=== PATIENT | male | born 1945 | race Caucasian/White ===

== ENCOUNTER 2017-05-24 17:14 | Emergency (ER) | payer OTHER ==
[2017-05-24 17:18] VITALS: TEMP 98.4
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
[2017-05-24 18:34] VITALS: BP 138/84; PULSE 78; RESP 14; O2SAT 96
== END 2017-05-24 18:34 | disposition home or self-care (01) ==
DX: S63.501A Unspecified sprain of right wrist, initial encounter (principal); Z79.82 Long term (current) use of aspirin; Z85.038 Personal history of other malignant neoplasm of large intestine; V18.4XXA Pedal cycle driver injured in noncollision transport accident in traffic accident, initial encounter; Y92.410 Unspecified street and highway as the place of occurrence of the external cause; Y99.8 Other external cause status; Y93.55 Activity, bike riding
CPT/HCPCS: 73110; 99283; L3807

== ENCOUNTER → 2017-08-13 | Outpatient (CLI) | payer OTHER | LOC: BHFA 09:00 | PROVIDERS: ATTEND Internal Medicine Cardiovascular Disease | DX: R07.89 Other chest pain (principal) ==

== ENCOUNTER 2017-08-27 07:43 | Inpatient (IN) | payer OTHER ==
[2017-08-27] MEDS ORDERED: ASPIRIN EC 325 MG TAB PO ONE ×2 (07:44→08:01)
[2017-08-27] MEDS ORDERED: DIAZEPAM 5 MG TAB PO ONE (07:44)
[2017-08-27] MEDS ORDERED: NS 1,000 ML IV ONE (07:44)
[2017-08-27] MEDS ORDERED: diphenhydrAMINE 25 MG CAP PO ONE ×2 (07:44→08:01)
[2017-08-27] MEDS ORDERED: FAMOTIDINE 20 MG TAB PO ONE (07:44)
[2017-08-27] MEDS ORDERED: FAMOTIDINE 20 MG TAB ONE (08:01)
[2017-08-27] MEDS ORDERED: DIAZEPAM 5 MG TAB ONE (08:01)
--- NOTE | 2017-08-27 08:02 | CPEKG ---
Heart Rate: 64 RR Interval: 938 P-R Interval: 200 QRSD Interval: 84 QT Interval: 412 QTC Interval: 425 P [place]: 40 QRS [place]: -16 T Wave [place]: 81 EKG Severity - BORDERLINE ECG - EKG Impression: SINUS RHYTHM EKG Impression: BORDERLINE LEFT AXIS DEVIATION EKG Impression: BORDERLINE T WAVE ABNORMALITIES Electronically Signed By: Juana Salcedo 27-Aug-2017 10:38:44
[2017-08-27 08:34] LABS: % IMMATURE GRANULYOCYTES 0.2 % (0.0-1.1); ABSOLUTE IMMATURE GRANULOCYTES 0.01 10^3/uL (0.00-0.10); ADD DIFF? NO; ADD MORPH? NO; ADD SCAN? NO; ATYPICAL LYMPHOCYTE FLAG 20 (0-99); FRAGMENT RBC FLAG 0 (0-99); HEMATOCRIT 48.1 % (40.0-51.0); HEMOGLOBIN 17.2 g/dL (13.7-17.5); LEFT SHIFT FLG 0 (0-99); LIPEMIA HEMOLYSIS FLAG 90 (0-99); MEAN CELL HEMOGLOBIN 35.8 pg (27.9-34.1); MEAN CELL HEMOGLOBIN CONCENTR. 35.8 g/dL (32.4-36.7); MEAN PLATELET VOLUME 9.4 fL (8.7-11.7); PLATELET CLUMPS FLAG 0 (0-99); PLATELET COUNT 125 10^3/uL (150-400); RED BLOOD CELL COUNT 4.81 10^6/uL (4.40-6.38); RED CELL DISTRIBUTION WIDTH 13.2 % (11.5-15.2)
[2017-08-27 08:42] LABS: INR 0.98 (0.83-1.16); PROTIME(PATIENT) 13.2 SEC (12.0-15.0)
[2017-08-27 08:54] LABS: ANION GAP 10 mEq/L (8-16); CALCIUM 9.2 mg/dL (8.5-10.4); CARBON DIOXIDE 22 mEq/l (22-31); CHLORIDE 110 mEq/L (97-110); CHOLESTEROL 130 mg/dL (140-220); CHOLESTEROL/HDL RATIO 2.13 RATIO (1.00-4.97); CREATININE 0.9 mg/dL (0.7-1.3); GLOMERULAR FILTRATION RATE > 60; GLUCOSE 100 mg/dL (70-100); HIGH DENSITY LIPOPROTEIN 61 mg/dL (40-65); LDL/HDL RATIO 0.97 RATIO (1.00-3.64); LOW DENSITY LIPOPROTEIN 59 mg/dL (80-100); MAGNESIUM 1.9 mg/dL (1.6-2.3); NON-HIGH DENSITY LIPOPROTEIN 69 mg/dL (90-129); POTASSIUM 4.4 mEq/L (3.5-5.2); SODIUM 142 mEq/L (134-144); TRIGLYCERIDE 52 mg/dL (40-150); VERY LOW DENSITY LIPOPROTEINS 10 mg/dL (8-25)
--- NOTE | 2017-08-27 09:15 | PDHPUP ---
History & Physical Update H&P update statement: This history and physical update is based on an assessment of the patient which was completed after admission or registration (within 24 hours), but prior to the surgery/procedure. H&P update: H&P reviewed & patient examined, no change in patient's condition since H&P completed
--- NOTE | 2017-08-27 09:16 | PDPROPOC ---
Sedation Plan of Care Sedation Plan of Care: vital signs stable, mental status noted, patient educated of risks, benefits, alternatives, patient can tolerate sedation ASA Classification: ASA 3 Planned drugs: fentanyl, midazolam, other (etomidate if necessary) Mallampati Score: Class 2 Mallampati Reference Image: Patient passed 3-3-2 rule?: Yes
[2017-08-27] MEDS ORDERED: LIDOCAINE 1% 300 MG/30 ML SDV ONE (09:20)
[2017-08-27] MEDS ORDERED: fentaNYL 100 MCG/2 ML INJ ONE ×2 (09:20→10:05)
[2017-08-27] MEDS ORDERED: MIDAZOLAM 2 MG/2 ML VIAL ONE ×2 (09:21→10:05)
[2017-08-27] MEDS ORDERED: HEPARIN 10,000 UNIT/10 ML MDV ONE (09:21)
[2017-08-27] MEDS ORDERED: VERAPAMIL 5 MG/2 ML VIAL ONE (09:21)
[2017-08-27] MEDS ORDERED: IOPAMIDOL (ISOVUE-370) 150 ML BTL IV ONE ×2 (09:21→10:53)
--- NOTE | 2017-08-27 09:59 | PDDXCAT ---
Diagnostic Cath Note - . Date: 08/27/17 Water Use Inspector: Nadege Indication: CCC Class III and IV angina on medical treatment - Procedure Access: left wrist Procedure: left heart catheterization - Materials Left Heart Cath size: 5F Left Heart Cath materials: standard multipack (JL4, JR4, pigtail), other (6 ENGLISH EBU 4 WAS USED FOR GUIDE CATHETER SUPPORT) - Findings-Left Heart Catheterization LM: LM is 8mm in size. It trifurcates into the LAD, Ramus, and Circumflex system. LAD: The principle diagonal is a 2.75mm vessel. It is 100% occluded. There is KEVIN 0 flow. It is weakly collaterized from left to left collaterals distally. LCX: It is 3.5mm in size. The circumflex is codominant. RCA: 80% lesion of PROXIMAL TO MID codominant right coronary with KEVIN III flow. 3.5 mm vessel. Ramus: The ramus intermedius is 2.5mm is size. EDP: LVEDP is 17 mmHg. LVEF: EF was 60% and normal. Wall motion: NO SEGMENTAL WALL MOTION ABNORMALITIES Complications: NONE. Estimated blood loss: <50ml Closure method: TR Band Assessment: SEVERE LITTLE TRAVERSE VESSEL CORONARY DISEASE WITH OCCLUSIVE DISEASE OF THE LAD DIAGONAL. THERE IS OBSTRUCTIVE DISEASE OF THE PROXIMAL RIGHT CORONARY ARTERY. Plan: Dual antiplatelet therapy with Aspirin 325mg for the first month followed by Aspirin 81mg along with Plavix 75mg daily should be continued for at least 1 year following drug eluting stent implantation. No elective surgery for the first 3 months. Decisions to stop dual antiplatelet therapy before 1 year should involve our office [facility] [phone]. Intervention: A 6 [place] EBU 4 Launcher was used for guide catheter support. An 0.014 [employer] Quality Control Technician 50 wire was advanced across the lesion in question under direct fluoroscopic and angiographic guidance. The 100% occlusion of the diagonal with KEVIN O flow was ULTIMATELY stented with a 2.5 x38 SYNERGY Drug Eluting Stent. The post stent residual obstruction was 0%. There was KEVIN III flow post stent implantation. (PLEASE SEE THE MAC LAB REPORT FOR ALL INTERVENTIONAL MATERIALS UTILIZED.) Patient Problems: Problems Problem Status Onset Colon cancer Acute
[2017-08-27] MEDS ORDERED: NITROGLYCERIN 1,500 MCG/15 ML VIAL MISC ONE (10:53)
[2017-08-27] MEDS ORDERED: CLOPIDOGREL BISULFATE 75 MG TAB ONE (11:01)
--- NOTE | 2017-08-27 11:21 | CPEKG ---
Heart Rate: 67 RR Interval: 896 P-R Interval: 192 QRSD Interval: 82 QT Interval: 428 QTC Interval: 452 P [place]: 52 QRS [place]: -11 T Wave [place]: 70 EKG Severity - BORDERLINE ECG - EKG Impression: SINUS RHYTHM EKG Impression: BORDERLINE T ABNORMALITIES, LATERAL LEADS Electronically Signed By: Juana Salcedo 27-Aug-2017 18:53:40
[2017-08-27] MEDS ORDERED: NITROGLYCERIN 0.4 MG BTL SL PRN (11:26)
[2017-08-27] MEDS ORDERED: ATROPINE SULFATE 1 MG/10 ML SYR IVP PRN (11:26)
[2017-08-27] MEDS ORDERED: CLOPIDOGREL BISULFATE 75 MG TAB PO ONE (11:26)
[2017-08-27] MEDS ORDERED: OXYCODONE/APAP 5/325 TAB PO PRN (11:26)
[2017-08-27] MEDS ORDERED: LORazepam 2 MG/ML INJ IVP PRN (11:26)
[2017-08-27] MEDS ORDERED: HYDROCODONE/APAP 5/325 TAB PO PRN (11:26)
[2017-08-27] MEDS ORDERED: TEMAZEPAM 15 MG CAP PO PRN (11:26)
[2017-08-27] MEDS ORDERED: ONDANSETRON 4 MG/2 ML VIAL IVP PRN (11:26)
[2017-08-27] MEDS ORDERED: NS 1,000 ML IV SCH (11:30)
[2017-08-27] MEDS ORDERED: diphenhydrAMINE 25 MG CAP PO PRN (15:43)
[2017-08-27] MEDS ORDERED: CARBOXYMETHYLCELLULOSE 1% 0.4 ML DROPERETTE EACHEYE PRN (16:04)
[2017-08-27] MEDS: EZETIMIBE 10 MG TAB PO SCH (19:45)
[2017-08-27] MEDS: ROSUVASTATIN CALCIUM 20 MG TAB PO SCH (19:45)
[2017-08-27] MEDS: COLCHICINE 0.6 MG CAP/TAB PO SCH (19:45)
[2017-08-28 05:30] LABS: % IMMATURE GRANULYOCYTES 0.2 % (0.0-1.1); ABSOLUTE IMMATURE GRANULOCYTES 0.01 10^3/uL (0.00-0.10); ADD DIFF? NO; ADD MORPH? NO; ADD SCAN? NO; ATYPICAL LYMPHOCYTE FLAG 0 (0-99); FRAGMENT RBC FLAG 0 (0-99); HEMATOCRIT 47.2 % (40.0-51.0); HEMOGLOBIN 16.6 g/dL (13.7-17.5); LEFT SHIFT FLG 0 (0-99); LIPEMIA HEMOLYSIS FLAG 90 (0-99); MEAN CELL HEMOGLOBIN 35.1 pg (27.9-34.1); MEAN CELL HEMOGLOBIN CONCENTR. 35.2 g/dL (32.4-36.7); MEAN CELL VOLUME 99.8 fL (81.5-99.8); MEAN PLATELET VOLUME 9.9 fL (8.7-11.7); PLATELET CLUMPS FLAG 0 (0-99); PLATELET COUNT 125 10^3/uL (150-400); RED BLOOD CELL COUNT 4.73 10^6/uL (4.40-6.38); RED CELL DISTRIBUTION WIDTH 13.3 % (11.5-15.2)
[2017-08-28 05:55] LABS: ALBUMIN 3.3 g/dL (3.5-5.0); ANION GAP 10 mEq/L (8-16); ASPARTATE AMINOTRANSFERASE 35 IU/L (17-59); BILIRUBIN,TOTAL 2.6 mg/dL (0.1-1.4); CARBON DIOXIDE 24 mEq/l (22-31); CHLORIDE 106 mEq/L (97-110); CREATININE 0.9 mg/dL (0.7-1.3); GLOMERULAR FILTRATION RATE > 60; GLUCOSE 81 mg/dL (70-100); LACTATE DEHYDROGENASE 420 IU/L (313-618); MAGNESIUM 1.8 mg/dL (1.6-2.3); POTASSIUM 4.1 mEq/L (3.5-5.2); SODIUM 140 mEq/L (134-144)
[2017-08-28 06:02] LABS: BILIRUBIN-CONJUGATED 0.2 mg/dL (0.0-0.5); BILIRUBIN-UNCONJUGATED 2.4 mg/dL (0.0-1.1)
--- NOTE | 2017-08-28 08:59 | CPEKG ---
Heart Rate: 73 RR Interval: 822 P-R Interval: 192 QRSD Interval: 90 QT Interval: 384 QTC Interval: 424 P [place]: 43 QRS [place]: -7 T Wave [place]: -78 EKG Severity - ABNORMAL ECG - EKG Impression: SINUS RHYTHM EKG Impression: PROBABLE ANTEROSEPTAL INFARCT, OLD EKG Impression: BORDERLINE T ABNORMALITIES, INFERIOR LEADS Electronically Signed By: Juana Salcedo 28-Aug-2017 10:49:58
[2017-08-28] MEDS ORDERED: MAGNESIUM SULF 1 GM/DEXTROSE 100 ML IV ONE (09:24)
[2017-08-28] MEDS: ASPIRIN EC 325 MG TAB PO SCH (09:39)
[2017-08-28] MEDS: CHOLECALCIFEROL VIT D3 2,000 UNITS TAB/CAP PO SCH (09:39)
[2017-08-28] MEDS: COLCHICINE 0.6 MG CAP/TAB PO SCH ×2 (09:39→20:30)
[2017-08-28] MEDS: CLOPIDOGREL BISULFATE 75 MG TAB PO SCH (09:39)
[2017-08-28] MEDS: LISINOPRIL 10 MG TAB PO SCH (09:39)
[2017-08-28] MEDS: amLODIPine BESYLATE 5 MG TAB PO SCH (10:37)
--- NOTE | 2017-08-28 12:06 | ASMTCMCOM ---
CM Note CM Note Notes: 08/28/2017 Case Management Note Reviewed chart. No case management d/c needs identified d/t pt age, marital status, employment status and activity levels prior to admission. There are no PT or OT evals. Case Management d/c poc: Home independent when medically stable. Case Management available if needs change. Date Signed: 08/28/2017 12:06 PM Electronically Signed By:Cat Olivia RN
[2017-08-28] MEDS: METOPROLOL TARTRATE 25 MG TAB PO SCH ×2 (12:19→20:29)
[2017-08-28 12:20] LABS: TROPONIN I 0.106 ng/mL (0.000-0.034)
--- NOTE | 2017-08-28 13:34 | PDCARPN ---
Cardiology Progress Note Chief Complaint: Patient reports he would like to go home. Assessment/Plan: Assessment: 71-year-old male with significant history of hypercholesteremia, hypertension, and family history of heart disease. Noted to have chest pain 3 weeks ago, with exertion. Improving with rest. Underwent cardiac catheterization 08/[address] Light. Results of study showing 100% occlusion breath will diagonal with week collateralization of from [id number] circulation. Also noted 80% lesion in the proximal to mid RCA. EF was noted to be 60% with no wall motion abnormalities, EDP was 17 mm Hg. Percutaneous coronary intervention was done with the implantation of a 2.5 x 38 synergy LESLIE stent, no apparent complications. Patient was started on dual anti-platelet therapy of aspirin and clopidogrel. Few hours post procedure, patient did have a episode of nonsustained ventricular tachycardia for 13 beats. He was asymptomatic at the time. Today, patient denies of any chest pressure or pain, reports no shortness of breath. Denies of any palpitations, lightheadedness, near-syncope or syncopal events. Left wrist site, catheter insertion site, with mild ecchymosis but no hematoma. With overnight continuous cardiac monitoring showing sinus rhythm/ sinus bradycardia. Laboratory studies drawn show a mild elevation of troponin of 0.106. Plan: 1. CAD: Status post percutaneous coronary intervention to totalled diagonal branch. LESLIE implantation. He has been started 325 mg of aspirin daily clopidogrel at 75 mg p. o. daily. Denies of any chest pain or pressure. Was noted to have 1 episode of nonsustained VT. A.m. troponin level mildly elevated at 0.106. This troponin level was somewhat expected with percutaneous coronary intervention, will cycle troponin levels to assure downward decline. 2. Nonsustained VT: Strips were discussed with Dr. Light, who felt potentially this could be reperfusion arrhythmia due to the opening of total occluded diagonal branch. Patient's magnesium was 1.8 today, 1 g Mag was given. Due to this arrhythmia, we would like to continue having patient in the monitor for overnight monitoring to assure no further arrhythmia. Has been started on low-dose beta-shadi of metoprolol tartrate at 12.5 mg p. o. twice daily. Will repeat BMP and magnesium level in a.m.. Repeat electrocardiogram in a.m.. 3. Hyperlipidemia: Patient has been resumed on home dose of Crestor. Fasting lipid panel done prior to cardiac catheterization showed LDL adequately suppressed at 59. Due to patient's episode of nonsustained ventricular tachycardia, we will plan for the patient to be staying for 1 more night for continuous monitoring. 08/28/17 13:31 Subjective: Patient denies of any chest pain, shortness of breath, palpitations, lightheadedness, near-syncope, or syncopal events. Has had no bleeding issues. Reviewed/Discussed With: other (Dr Light) Objective: Vital Signs (8 Hrs) Temp Pulse Resp BP Pulse Ox 08/28/17 12:30 36.3 C 67 24 H 132/78 H 95 08/28/17 08:58 36.4 C 74 18 130/88 H 92 Intake/Output (24 Hrs) 08/27/17 08/28/17 08/29/17 05:59 05:59 05:59 Intake Total 3585 Output Total 2675 Balance 910 Intake: Oral (ml) 1500 IV Intake (ml) 700 IV Infused (ml) 1385 Ns 1,000 ml @ 100 mls/hr 1385 IV CONT ABBE Rx#: [id number] Output: Urine (ml) 2675 Urinal 2675 Other: Weight 84.4 kg Number of Voids Urinal 1 Result Diagrams: 08/28/17 03:55 08/28/17 03:55 Cardiac Labs: Cardiac Lab Results (72 Hrs) 08/28/17 03:55 Troponin I 0.106 H - Physical Exam Constitutional: WDWN, healthy appearing, no apparent distress Ears, Nose, Mouth, Throat: moist mucous membranes Cardiovascular: regular rate and rhythm, no murmurs, no rubs, no gallops, pulses symmetric bilat, No jugular vein distention, No carotid bruit Peripheral Pulses: 2+: carotid (R), carotid (L), dorsalis-pedis (R), dorsalis- pedis (L) Respiratory: clear to auscultate bilat, no crackles, no wheezes Gastrointestinal: normoactive bowel sounds, no tenderness Skin: no rashes, warm, no edema, other ( left wrist, catheter insertion site with mild ecchymosis, but no hematoma, redness, swelling, bleeding, or signs of infection. Capillary refill within normal limits, +2 radial pulses. Normal CMS checks.) Neurologic: AAOx3 Psychiatric: cooperative, interactive, following commands ICD10 Worksheet Patient Problems: Problems Problem Status Onset Colon cancer Acute
[2017-08-28] MEDS: EZETIMIBE 10 MG TAB PO SCH (20:29)
[2017-08-28] MEDS: ROSUVASTATIN CALCIUM 20 MG TAB PO SCH (20:30)
[2017-08-29 05:41] LABS: ANION GAP 12 mEq/L (8-16); CALCIUM 9.1 mg/dL (8.5-10.4); CARBON DIOXIDE 25 mEq/l (22-31); CHLORIDE 107 mEq/L (97-110); GLOMERULAR FILTRATION RATE > 60; GLUCOSE 81 mg/dL (70-100); POTASSIUM 4.3 mEq/L (3.5-5.2); SODIUM 144 mEq/L (134-144)
[2017-08-29 05:52] LABS: TROPONIN I 0.032 ng/mL (0.000-0.034)
[2017-08-29 07:46] VITALS: BP 105/68; RESP 22; TEMP 97.6; O2SAT 94
[2017-08-29] MEDS: ASPIRIN EC 325 MG TAB PO SCH (08:34)
[2017-08-29] MEDS: METOPROLOL TARTRATE 25 MG TAB PO SCH (08:34)
[2017-08-29] MEDS: amLODIPine BESYLATE 5 MG TAB PO SCH (08:34)
[2017-08-29] MEDS: LISINOPRIL 10 MG TAB PO SCH (08:34)
[2017-08-29] MEDS: CLOPIDOGREL BISULFATE 75 MG TAB PO SCH (08:34)
[2017-08-29] MEDS: COLCHICINE 0.6 MG CAP/TAB PO SCH (08:34)
--- NOTE | 2017-08-29 08:38 | CPEKG ---
Heart Rate: 52 RR Interval: 1154 P-R Interval: 232 QRSD Interval: 104 QT Interval: 428 QTC Interval: 398 P [place]: 40 QRS [place]: -5 T Wave [place]: 80 EKG Severity - ABNORMAL ECG - EKG Impression: SINUS RHYTHM EKG Impression: FIRST DEGREE AV BLOCK Electronically Signed By: Juana Salcedo 29-Aug-2017 14:09:16
[2017-08-29] MEDS: CHOLECALCIFEROL VIT D3 2,000 UNITS TAB/CAP PO SCH (08:39)
[2017-08-29 09:16] VITALS: PULSE 52
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
--- NOTE | 2017-08-29 14:43 | ASDISCHSUM ---
Discharge Information Plan Status:Home with No Needs Medically Cleared to Leave: Discharge Date:08/29/2017 10:34 AM CM D/C Disposition:Home, Routine, Self-Care ADT D/C Disposition:Home, Routine, Self-Care Projected Discharge Date:08/29/2017 10:34 AM Transportation at D/C:Family Discharge Delay Reason: Follow-Up Date:08/29/2017 10:34 AM Discharge Slot: Final Diagnosis: Placement Information Patient Contact Information Contact Name:JOCY Relationship: Address:[address] [facility] Work Phone: City:[place] Alternate Phone: [facility]/Zip Code:[place] [address] Email: Financial Information Financial Class: Primary Plan Desc:MEDICARE OUTPATIENT Primary Plan Number:[id number] Secondary Plan Desc:[facility] Secondary Plan Number:[id number] Assessment Information [facility] CM Progress Note CM Note CM Note Notes: 08/28/2017 Case Management Note Reviewed chart. No case management d/c needs identified d/t pt age, marital status, employment status and activity levels prior to admission. There are no PT or OT evals. Case Management d/c poc: Home independent when medically stable. Case Management available if needs change. Date Signed: 08/28/2017 12:06 PM Electronically Signed By:Cat Olivia RN Intervention Information Intervention Type:*HOLDER-Signed Date of Service:08/28/2017 10:59 AM Patient Type:Observation Staff Member:Latrice Guevara Hours: Discipline: Severity: Comment: Intervention Type:*[place] 70 Date of Service:08/27/2017 11:28 AM Patient Type:Inpatient Staff Member:ROSA Dale Shelly Hours:0.25 Discipline: Severity:1 (0-1 Hours) Comment:Occ 70 for 08/27/2017 11:28 to 2016 15:28 as patient discharged 08/29/2017 09:26 (< 2 [place] LOS after patient admission status changed from observation to inpatient).
== END 2017-08-29 10:34 | disposition home or self-care (01) | DRG 247 ==
LOC: FCATH 07:43 → F2W 14:19 → OBSVTOIN 08-28 15:28
PROVIDERS: ADMIT Internal Medicine Cardiovascular Disease; ATTEND Internal Medicine Cardiovascular Disease
PROC: B2151ZZ Fluoroscopy of Left Heart using Low Osmolar Contrast (ICD-10-PCS; principal; 2017-08-28)
PROC: 4A023N7 Measurement of Cardiac Sampling and Pressure, Left Heart, Percutaneous Approach (ICD-10-PCS; principal; 2017-08-28)
PROC: 027034Z Dilation of Coronary Artery, One Artery with Drug-eluting Intraluminal Device, Percutaneous Approach (ICD-10-PCS; principal; 2017-08-28)
PROC: B2111ZZ Fluoroscopy of Multiple Coronary Arteries using Low Osmolar Contrast (ICD-10-PCS; principal; 2017-08-28)
DX: I25.10 Atherosclerotic heart disease of native coronary artery without angina pectoris (principal); I25.82 Chronic total occlusion of coronary artery; I47.2 Ventricular tachycardia; Z82.49 Family history of ischemic heart disease and other diseases of the circulatory system; I10 Essential (primary) hypertension; E78.5 Hyperlipidemia, unspecified; Z85.038 Personal history of other malignant neoplasm of large intestine
CPT/HCPCS: C1725; C1769; C1874; C1887; C9600; J1644; J2250; J3010; J3475; Q9967

== ENCOUNTER → 2017-11-02 | Outpatient (CLI) | payer OTHER | LOC: BHFA 14:00 | PROVIDERS: ATTEND Internal Medicine Cardiovascular Disease | DX: I25.10 Atherosclerotic heart disease of native coronary artery without angina pectoris (principal) | CPT/HCPCS: 78452; 93017; A9500 ==

== ENCOUNTER → 2018-07-01 | Outpatient (CLI) | payer OTHER | LOC: FIMAGING 12:43 | PROVIDERS: ATTEND Internal Medicine | DX: M54.31 Sciatica, right side (principal) ==

== ENCOUNTER → 2018-07-05 | Outpatient (CLI) | payer OTHER | LOC: FIMAGING 15:53 | PROVIDERS: ATTEND Internal Medicine | DX: M54.31 Sciatica, right side (principal) ==

== ENCOUNTER 2018-08-01 14:28 | Emergency (ER) | payer OTHER ==
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
[2018-08-01] MEDS ORDERED: TDAP ADULT 0.5 ML INJ (BOOSTRIX) IM ONE (15:06)
[2018-08-01 16:20] VITALS: BP 118/66
== END 2018-08-01 16:20 | disposition home or self-care (01) ==
DX: S42.035A Nondisplaced fracture of lateral end of left clavicle, initial encounter for closed fracture (principal); S62.231A Other displaced fracture of base of first metacarpal bone, right hand, initial encounter for closed fracture; S09.90XA Unspecified injury of head, initial encounter; S80.812A Abrasion, left lower leg, initial encounter; S60.221A Contusion of right hand, initial encounter; V19.9XXA Pedal cyclist (driver) (passenger) injured in unspecified traffic accident, initial encounter; Y93.55 Activity, bike riding; Y92.9 Unspecified place or not applicable; Z23 Encounter for immunization
CPT/HCPCS: 70450; 73030; 73130; 73564; 90471; 90715; 99284; A4565; L3807

== ENCOUNTER → 2018-08-16 | Outpatient (CLI) | payer OTHER | LOC: FIMAGING 10:44 | PROVIDERS: ATTEND Specialist | DX: Z01.811 Encounter for preprocedural respiratory examination (principal); I70.0 Atherosclerosis of aorta ==